=== PATIENT | male | born 1970 | race Caucasian/White ===

== ENCOUNTER 2018-07-03 10:37 | Outpatient (REF) | payer BC, SELFPAY ==
[2018-07-03 14:48] LABS: ALT 78 U/L (12-78); AST 48 U/L (15-37); Albumin 4.1 g/dL (3.4-5.0); Alkaline Phosphatase 89 U/L (46-116); Anion Gap 8.3 mmol/L (3-11); BUN 16 mg/dL (7-18); Bilirubin, Total 0.8 mg/dL (0.2-1.0); CO2 26.7 mmol/L (21.0-32.0); Calcium 9.5 mg/dL (8.5-10.1); Chloride 102 mmol/L (98-107); Cholesterol 198 mg/dL (50-200); Glucose 110 mg/dL (70-100); HDL Cholesterol 43 mg/dL (40-60); LDL CHOLESTEROL 114 mg/dL (<100); Potassium 4.3 mmol/L (3.5-5.1); Sodium 137 mmol/L (136-145); Total Protein 7.8 g/dL (6.4-8.2); Triglyceride 232 mg/dL (30-150)
== END 2018-07-03 10:57 ==
LOC: NCHCN 10:37
PROVIDERS: PCP Nurse Practitioner; Visit Provider Nurse Practitioner
DX: I10 Essential (primary) hypertension (principal); E78.5 Hyperlipidemia, unspecified
CPT/HCPCS: 80053; 80061; 83721

== ENCOUNTER 2019-07-24 12:18 | Outpatient (CLI) | payer BC, SELFPAY ==
--- NOTE | 2019-07-24 12:00 | DI.RAD_ITS ---
EXAM: XR SHOULDER RT COMPLETE 2+V INDICATION: pain. COMPARISON: No exams were available for comparison TECHNIQUE: 2D digital imaging was performed. FINDINGS: The glenohumeral joint space is well maintained. There is minimal spurring at the AC joint. No ten don or joint space calcifications are seen. IMPRESSION: Minimal degenerative changes.
--- NOTE | 2019-07-24 12:03 | DI.RAD_ITS ---
EXAM: XR ELBOW RT COMPLETE INDICATION: pain. COMPARISON: No exams were available for comparison TECHNIQUE: 2D digital imaging was performed. FINDINGS: There is an olecranon spur. No bony erosions or joint effusion is seen. Joint spaces are well main tained. IMPRESSION: Olecranon spur.
== END 2019-07-24 12:38 ==
PROVIDERS: PCP Nurse Practitioner; Visit Provider Student in an Organized Health Care Education/Training Program
DX: M25.511 Pain in right shoulder (principal); M19.011 Primary osteoarthritis, right shoulder; M25.521 Pain in right elbow; M77.8 Other enthesopathies, not elsewhere classified
CPT/HCPCS: 73030; 73080

== ENCOUNTER → 2019-10-08 13:54 | Outpatient (REF) | payer BC, SELFPAY ==
[2019-10-08 15:29] LABS: ALT 133 U/L (16-63); AST 60 U/L (15-37); Albumin 4.5 g/dL (3.4-5.0); Alkaline Phosphatase 102 U/L (46-116); Anion Gap 9.5 mmol/L (3-11); BUN 16 mg/dL (7-18); Bilirubin, Total 0.6 mg/dL (0.2-1.0); CO2 26.5 mmol/L (21.0-32.0); CREATININE 0.96 mg/dL (0.70-1.30); Calcium 9.2 mg/dL (8.5-10.1); Calculated LDL 100 mg/dL (<100); Chloride 99 mmol/L (98-107); Cholesterol 188 mg/dL (<200); Glucose 117 mg/dL (74-106); HDL Cholesterol 39 mg/dL (40-60); Potassium 4.2 mmol/L (3.5-5.1); Sodium 135 mmol/L (136-145); Total Protein 7.7 g/dL (6.4-8.2); Triglyceride 245 mg/dL (<150)
== END ==
LOC: NCHCN 13:54
PROVIDERS: PCP Nurse Practitioner; Visit Provider Nurse Practitioner
DX: I10 Essential (primary) hypertension (principal); E78.5 Hyperlipidemia, unspecified
CPT/HCPCS: 80053; 80061

== ENCOUNTER 2020-08-17 16:32 | Outpatient (REF) | payer BC, SELFPAY ==
[2020-08-17 15:26] LABS: HCT 42.5 % (40.0-50.0); MCH 30.7 pg (27.0-33.0); MCHC 35.3 % (32.0-36.0); MCV 87.1 fL (80-95); MPV 11.4 fL (8.0-11.0); Platelet Count 191 10^3/uL (130-400); RBC 4.88 10^6/uL (4.36-5.78); RDW 12.5 % (11.8-14.1); RDW-SD 39.8 fL; WBC 6.92 10^3/uL (4.4-10.8)
[2020-08-17 15:45] LABS: Hemoglobin A1C 5.2 % (<5.7)
[2020-08-17 15:47] LABS: ALT 108 U/L (16-63); AST 52 U/L (15-37); Albumin 4.6 g/dL (3.4-5.0); Alkaline Phosphatase 84 U/L (46-116); Anion Gap 8.6 mmol/L (3-11); BUN 20 mg/dL (7-18); Bilirubin, Total 0.9 mg/dL (0.2-1.0); CO2 26.4 mmol/L (21.0-32.0); CREATININE 0.9 mg/dL (0.70-1.30); Calcium 9.8 mg/dL (8.5-10.1); Calculated LDL 145 mg/dL (<100); Chloride 99 mmol/L (98-107); Cholesterol 227 mg/dL (<200); Glucose 112 mg/dL (74-106); HDL Cholesterol 49 mg/dL (40-60); Potassium 4.2 mmol/L (3.5-5.1); Sodium 134 mmol/L (136-145); Total Protein 8.1 g/dL (6.4-8.2); Triglyceride 167 mg/dL (<150)
== END 2020-08-17 16:33 | disposition home or self-care (01) ==
LOC: NCHCN 16:32
PROVIDERS: PCP Nurse Practitioner; Visit Provider Nurse Practitioner
DX: I10 Essential (primary) hypertension (principal); E78.5 Hyperlipidemia, unspecified; R73.9 Hyperglycemia, unspecified; R79.89 Other specified abnormal findings of blood chemistry
CPT/HCPCS: 80053; 80061; 85027; 83036

== ENCOUNTER 2020-12-10 13:10 | Emergency (ER) | payer BC, SELFPAY ==
[2020-12-10] VITALS (14 sets, daily range): BP systolic 119–142; BP diastolic 75–91; PULSE 85–98; RESP 15–23; TEMP 36.7; O2SAT 92–97
--- NOTE | 2020-12-10 13:15 | RT.EKG_ITS ---
APPROVED REPORT Exam: Resting ECG Reason for Exam: chest pain Patient Location: E HR:94 bpm ECG Measurements Heart Rate 94 AXIS OH 141 P 27 QRSd 87 QRS 26 QT 337 T 22 QTc 421 Conclusion Sinus rhythm...normal P axis, V-rate 60- 99 Atrial premature complex...SV complex w/ short R-R interval. PACs. No STEMI. I have reviewed and interpreted ECG and agree with software generated interpretation.
--- NOTE | 2020-12-10 13:45 | DI.RAD_ITS ---
Exam(s) XR CHEST 2V PA LATERAL EXAM: XR CHEST 2V PA LATERAL CLINICAL HISTORY: chest pain. TECHNIQUE: 2D digital imaging was performed. COMPARISON: CR CHEST 2 VIEWS PA,LAT from 09/17/2012 FINDINGS: Heart size is normal. The mediastinum is not widened. Lungs are clear. No infiltrates nor pleural effusions. IMPRESSION: No acute pulmonary findings.No significant change compared to September 2017 DATA REPOSITORY: RADIATION DOSE DELIVERED:
--- NOTE | 2020-12-10 13:45 | DI.CT_ITS ---
Exam(s) CT HEAD WO EXAM: CT HEAD WO CLINICAL HISTORY: headaches for the past month. TECHNIQUE: Imaging Protocol: Axial computed tomography images with coronal and sagittal reformatted images were created and reviewed COMPARISON: CT HEAD WITHOUT CONTRAST from 04/12/2016 FINDINGS: There are no skull fractures nor fluid in the visualized paranasal sinuses. There is no evidence of intracranial hemorrhage, mass effect, or shift of midline structures. There are no extra-axial fluid collections. The ventricles are not enlarged or shifted and there is no blo od within the ventricular system nor within the basal cisterns. IMPRESSION: No acute intracranial findings on this noninfused CT scan of the brain. No significant change compared to April 2016 RADIATION DOSE DELIVERED: 848.9mGy.cm Total DLP DATA REPOSITORY: All CT scans at this facility are submitted to the National Radiology Data Registry (NRDR) Dose Index Registry (DIR) with the [employer] (A[employer]). RADIATION OPTIMIZATION: All CT scans at this facility use at least one of these dose optimization te chniques: automated exposure control; mA and/or kV adjustment per patient size (includes targeted exa ms where dose is matched to clinical indication); or iterative reconstruction.
[2020-12-10 13:55] LABS: Abs Immature Grans 0.02 10^3/uL (0.0-0.06); Absolute Basophil Count 0.04 10^3/uL (0.0-0.2); Absolute Lymphocyte Count 1.52 10^3/uL (1.2-3.4); Absolute Monocyte Count 0.45 10^3/uL (0.1-0.8); Absolute Neutrophil Count 6.21 10^3/uL (1.2-6.7); Basophils % 0.5; Eosinophils % 1.2; HCT 42.4 % (40.0-50.0); Immature Grans % 0.2; Lymphocytes % 18.2; MCH 31.4 pg (27.0-33.0); MCHC 35.4 % (32.0-36.0); MCV 88.7 fL (80-95); MPV 10.3 fL (8.0-11.0); Monocytes % 5.4; Neutrophils % 74.5; Nucleated RBC 0 %; Platelet Count 207 10^3/uL (130-400); RBC 4.78 10^6/uL (4.36-5.78); RDW 12.4 % (11.8-14.1); RDW-SD 40.6 fL; WBC 8.34 10^3/uL (4.4-10.8)
--- NOTE | 2020-12-10 14:12 | ED.GENADUL_ITS ---
Discharge Plan Disposition Patient Disposition: HOME Condition: Stable Discharge Details Clinical Impression: Chest pain, Headache Primary Care Provider: Sue Queen ED Provider: Mary Kay Naylor Home Meds and New Rx's Prescriptions: No Action pravastatin [Pravachol] 40 MG tablet 40 mg PO DAILY RF: 0 amlodipine 5 MG tablet 5 mg PO DAILY RF: 0 lumbar back brace RF: 0 loratadine [Claritin Liqui-Gel] 10 MG capsule 10 mg PO DAILY PRNRF: 0 hydrochlorothiazide 25 mg tablet 12.5 mg PO DAILY RF: 0 lisinopril 40 MG tablet 40 mg PO QAM RF: 0 cyclobenzaprine 10 MG tablet 10 mg PO BID PRN PRNRF: 0 ibuprofen 600 MG tablet 600 mg PO Q6H PRN PRNQty: 30 RF: 1 acetaminophen [Tylenol] 325 MG tablet 650 mg PO Q6H PRN PRNQty: 30 RF: 0 omeprazole 40 mg Capsule,Delayed Release(Dr/Ec) 40 mg PO DAILY RF: 0 Discharge Instructions Instructions: Chest Pain (ED), General Headache (ED) Additional Instructions: Please follow-up with your doctor tomorrow, recommend outpatient stress test at the discretion of your primary care physician and reevaluation in 24 to 48 hours Do not engage in your exercise routine until you are cleared by your primary care physician 81 mg aspirin daily Please return earlier with recurrent chest pain, worsening headache, or with any new or worsening symptoms Discharge Data Discharge Date/Time-TO BE ENTERED AT DEPARTURE: 12/10/20 15:36 Medical Decision Making Patient is alert, oriented, pleasant, nonfocal neurological exam CT does not show evidence of acute pathology Chest x-ray reviewed without any evidence of infectious signs or symptoms or pneumothorax per radiology interpretation in my review Patient has a mild headache now that is not worsening and declines if any intervention regarding this I am concerned about patient's chest pain which she has had intermittently for the past several months he reports. He denies any known exertional component and actually states he feels great when he is exercising but when he stops exercising and rest, he developed some intermittent chest tightness. I think he will need close outpatient follow-up and we discussed admission for stress test versus outpatient follow-up, his heart score is a 3 and he has been absent since 2:00 yesterday, greater than 24 hours with a negative troponin and negative EKG however patient is aware he does have a strong family history and should not engage in any exercise or exertional activities until he is cleared by his primary care patient, who will take a baby aspirin daily and will call his doctor in the morning Did get him to call PCP, however they left for the day, he will call in the morning I see no evidence of active myocardial ischemia, EKG is reviewed by my attending physician, please see the documentation No right upper quadrant tenderness on exam or epigastric tenderness, mild elevation in LFTs, consistent with patient prior evaluation but compared, 38 in the ED H CPK slightly elevated, encouraged hydration patient will continue on all of his medications Differential Diagnosis Differential Diagnosis: Myocardial ischemia, migraine headache, GERD, intracranial tumor Medical Records Medical records reviewed: Yes I reviewed the patient's medical records. Lab Data Lab results reviewed: Yes I reviewed the patient's lab results. HPI General Mode of arrival: ambulatory . Date/Time Provider Initiated Documentation: 12/10/20 13:16 . Limitations to Documentation: no limitations . Information obtained by: patient . HPI Narrative: This 50-year-old gentleman with history of hypertension and hyperlipidemia presents with report of headache for the past 2 weeks and feeling lightheaded today which presents the pain at his visit. He also states he had an episode of chest pain yesterday. It was not exertional in nature. She denies any fever or chills. He states he has had similar symptoms in the past and was told that he has GERD for which he takes omeprazole. He denies known exacerbating or alleviating factors. He states that prior to the onset of pain he did walk out from the grocery store. He states the pain lasted approximately 3 minutes. He denies any associated shortness of breath or nausea. He denies any calf pain or swelling. He has not had pain since 2:00 yesterday. He states he did his normal workout and felt fine. He denies any additional complaints at this time. Related Data Home Medications Medication Instructions Recorded Confirmed lisinopril 40 mg PO QAM 09/17/12 12/10/20 cyclobenzaprine 10 mg PO BID PRN PRN 04/12/16 12/10/20 amlodipine 5 mg PO DAILY tab-cap 04/21/17 12/10/20 pravastatin [Pravachol] 40 mg PO DAILY tab-cap 04/21/17 12/10/20 loratadine [Claritin Liqui-Gel] 10 mg PO DAILY PRN 11/17/17 12/10/20 acetaminophen [Tylenol] 650 mg PO Q6H PRN PRN #30 tab 11/30/17 12/10/20 ibuprofen 600 mg PO Q6H PRN PRN #30 tab 11/30/17 12/10/20 hydrochlorothiazide 25 mg tablet 12.5 mg PO DAILY tab 06/17/19 12/10/20 omeprazole 40 mg PO DAILY 12/10/20 12/10/20 Previous Rx's Medication Instructions Recorded acetaminophen [Tylenol] 650 mg PO Q6H PRN PRN #30 tab 11/30/17 ibuprofen 600 mg PO Q6H PRN PRN #30 tab 11/30/17 Allergies Allergy/AdvReac Type Severity Reaction Status Date / Time fentanyl Allergy Unknown Unverified 12/10/20 13:25 atenolol AdvReac Mild Other (See Unverified 12/10/20 13:25 Comment) General Stated Complaint: GenMedical HERMINIO: 2 Review of Systems All systems reviewed & are unremarkable except as noted in HPI and below PFSH Medical History (Updated 12/10/20 @ 15:28 by ALLEN Chavarria) Chronic back pain Deviated nasal septum Diverticulosis Gastritis Headache Hernia Hyperlipidemia Hypertension Obstructive sleep apnea Surgical History (Updated 03/28/18 @ 14:33 by [employer] [place]) Appendectomy Arthroplasty of knee right- Dr. Castro back surgery x2 Cholecystectomy laparoscopic Colectomy sigmoid resection for diverticulitis Hernia Repair, Incisional (11/30/17) Family History (Updated 04/21/17 @ 10:55 by Idalmis Osullivan MD) Other Congestive heart failure Myocardial infarction Social History Smoking/Tobacco Use Status: Former Tobacco Use Smoking risk assessment performed?: Yes Alcohol Intake: current Alcohol Intake frequency: a few times a week Alcohol type: wine Drug use: Daily Substance use type: marijuana Current gender identity: male Do you feel safe at home: Yes Do you feel safe in your relationship?: Yes Exam Const General: cooperative, no acute distress and not ill appearing HENMT Head: normal to inspection Throat: uvula midline Eyes Pupils: PERRL EOM: EOM intact bilaterally Neck Other: No carotid bruit, no meningismus Resp Effort & Inspection: normal respiratory effort Auscultation: clear to auscultation bilaterally Cardio Rate: regular rate Rhythm: regular rhythm GI Other: Nontender Skin General skin exam: no rashes or lesions noted Neuro General: patient alert and patient oriented x3 Cranial Nerves: CN's II-XI intact bilaterally Speech: speech normal Gait: normal gait Motor: strength 5/5 throughout Sensory Exam: no sensory deficits noted Course Vital Signs Vital signs: Vital Signs Temperature 36.7 C 12/10/20 13:15 Pulse 94 H 12/10/20 13:15 Respiratory Rate 16 12/10/20 13:15 Blood Pressure 123/75 12/10/20 13:15 Pulse Oximetry 94 12/10/20 13:15 Temperature 36.7 C 12/10/20 13:15 Temperature Source Temporal Artery Scan 12/10/20 13:15 Pulse 87 12/10/20 13:46 Pulse 91 H 12/10/20 13:50 Respiratory Rate 18 12/10/20 13:50 Respiratory Effort Short of Breath 12/10/20 13:41 Respiratory Depth Normal 12/10/20 13:41 Respiratory Pattern Normal 12/10/20 13:41 Blood Pressure 124/82 12/10/20 13:46 Blood Pressure Mean 90 12/10/20 13:46 Blood Pressure Position Supine 12/10/20 13:15 Pulse Oximetry 96 12/10/20 13:50 Oxygen Delivery Method Room Air 12/10/20 13:15 Oxygen Flow Rate 0 12/10/20 13:15 Pain Level 3 12/10/20 13:15 Lab/Test Results Lab/Test Results: Laboratory Tests Range/Units 12/10/20 13:38 WBC (4.4-10.8) 10^3/uL 8.34 RBC (4.36-5.78) 10^6/uL 4.78 Hgb (13.5-17.5) g/dL 15.0 Hct (40.0-50.0) % 42.4 MCV (80-95) fL 88.7 MCH (27.0-33.0) pg 31.4 MCHC (32.0-36.0) % 35.4 RDW (11.8-14.1) % 12.4 Plt Count (130-400) 10^3/uL 207 MPV (8.0-11.0) fL 10.3 Immature Gran % 0.2 Neutrophils % 74.5 Lymphocytes % 18.2 Monocytes % 5.4 Eosinophils % 1.2 Basophils % 0.5 Nucleated RBC % % 0 Absolute Neutrophils (1.2-6.7) 10^3/uL 6.21 Absolute Lymphocytes (1.2-3.4) 10^3/uL 1.52 Absolute Monocytes (0.1-0.8) 10^3/uL 0.45 Absolute Eosinophils (0.0-0.7) 10^3/uL 0.10 Absolute Basophils (0.0-0.2) 10^3/uL 0.04
[2020-12-10 14:44] LABS: ALT 88 U/L (16-63); AST 38 U/L (15-37); Albumin 4.4 g/dL (3.4-5.0); Alkaline Phosphatase 68 U/L (46-116); Anion Gap 7.6 mmol/L (3-11); BUN 15 mg/dL (7-18); Bilirubin, Total 0.8 mg/dL (0.2-1.0); CO2 27.4 mmol/L (21.0-32.0); CREATININE 0.9 mg/dL (0.70-1.30); Calcium 9.5 mg/dL (8.5-10.1); Chloride 102 mmol/L (98-107); Creatine Kinase 328 U/L (39-308); Glucose 111 mg/dL (74-106); Lipase 82 U/L (73-393); Potassium 4.3 mmol/L (3.5-5.1); Sodium 137 mmol/L (136-145)
[2020-12-10 14:46] LABS: Troponin I < 0.05 ng/mL (<0.06)
== END 2020-12-10 15:36 | disposition home or self-care (01) ==
PROVIDERS: Emergency Provider Physician Assistant; PCP Nurse Practitioner
DX: R07.89 Other chest pain (principal); R51.9 Headache, unspecified; Z82.49 Family history of ischemic heart disease and other diseases of the circulatory system
CPT/HCPCS: 36415; 80053; 82550; 83690; 93005; 99285; 70450; 71046; 83735; 84484; 85025; 93010

== ENCOUNTER 2020-12-15 10:41 | Outpatient (REF) | payer BC, SELFPAY ==
[2020-12-15 21:51] LABS: Total Iron Binding Capacity 409 ug/dL (250-450)
[2020-12-15 22:50] LABS: Iron 85 ug/dL (65-175); Total Iron Binding Capacity 399 ug/dL (250-450); Transferrin Sat 21 % (20-55)
[2020-12-15 22:54] LABS: Calculated LDL 108 mg/dL (<100); Cholesterol 193 mg/dL (<200); GGT 69 U/L (15-85); HDL Cholesterol 41 mg/dL (40-60); TSH (W/Ref FT4) 1.81 uIU/mL (0.36-3.74); Triglyceride 223 mg/dL (<150); Vitamin B12 590 pg/mL (193-986)
[2020-12-17 10:06] LABS: Hepatitis B Surface Ag Negative (Negative)
[2020-12-17 10:29] LABS: Hepatitis C Ab w Rflx HCV PCR Negative (Negative)
[2020-12-17 10:57] LABS: Alpha 1 Antitrypsin,Serum 114 mg/dL (90-200)
[2020-12-17 11:13] LABS: HBs Antibody, Quant <3.1 mIU/mL (See Note); Hepatitis B Surface Ab Negative (See Note)
[2020-12-21 14:33] LABS: IgA 143 mg/dL (85-499); Interpretation (See Note); Tissue Transglutaminase IgA <1.2 U/mL (<4.0)
== END 2020-12-15 10:42 | disposition home or self-care (01) ==
LOC: NCHCN 10:41
PROVIDERS: PCP Nurse Practitioner; Visit Provider Nurse Practitioner
DX: E78.5 Hyperlipidemia, unspecified (principal); R79.89 Other specified abnormal findings of blood chemistry
CPT/HCPCS: 80061; 82784; 83516; 86706; 86803; 87340; 82103; 82607; 82977; 83540; 83550; 84443

== ENCOUNTER 2020-12-22 01:44 | Outpatient (CLI) | payer BC, SELFPAY ==
--- NOTE | 2020-12-22 08:45 | DI.NM_ITS ---
APPROVED REPORT Exam: Exercise Treadmill Patient Location: Out-Patient Room/Bed: Stress Nurse: Dana Lopez RN Ordering Provider:CASIEAdin SALOMON, Contact Number: [phone] BMI: 38.98 Baseline Rhythm: Sinus Rhythm Comment: T wave inversion lead III. Diffuse ST elevation leads, I, II, aVF Indications: Chest pain Medical History Medical History: Hypertension, hyperlipidemia, diverticulitis, gerd, SEAN, R shoulder injuries Cardiac Medications: Pravastatin, omeprazole, lisinopril, hydrochlorothiazide, amlodipine Allergies: Fentanyl, atenolol Cardiac Risk Factors: Hypertension, hyperlipidemia, familiy hx, smoker (former) Previous Cardiac Procedures: None Pretest Chest Pain Characteristics: None Exercise History: Physically active Physical Disabilities: None Lung Sounds: Clear to auscultation Heart Sounds: Regular Stress Test Details Test: Exercise stress testing was performed using a Helio protocol. Nuclear Acquisition: Rest Tc-99m/Stress Tc-99m 1 day Rest Isotope: Tc-99m Sestamibi. Dose: 12.5 Date: 12/22/2020 Injection Time: 0900 Stress Isotope: Tc-99m Sestamibi. Dose: 40.0 Date: 12/22/2020 Injection Time: 1036 HR Resting HR Supine: 79 bpm Max Heart Rate (APMHR): 171.188356 bpm Resting HR Standin bpm Target HR (85% APMHR): 145.014190 bpm Max HR Achieved: 160 bpm % of APMHR: 93.57 Recovery HR: 94 bpm HR response to stress: Normal HR response to stress BP Resting BP Supine: 138/86 mmHg Resting BP Standin/84 mmHg Max BP: 174/80 mmHg Recovery BP: 140/86 mmHg BP response to stress: Normal blood pressure response to stress. Comment: Pt held all BP medications this morning. ECG Resting ECG: Sinus Rhythm Comment: T wave inversion lead III. Diffuse ST elevation leads, I, II, aVF Stress ECG: Sinus Tachycardia ST Change: No significant ST segment changes noted Arrhythmia: Rare PVC Recovery ECG: Sinus Rhythm Recovery ST Change: No significant ST segment changes noted Recovery Arrhythmia: Occasional multifocal PVCs Clinical Reason for Termination: Fatigue, Dyspnea Stress Symptoms: General Fatigue, Dyspnea, Headache Exercise duration: 10 min31 sec Highest Stage Reached: Stage 4: 4.2 mph at 16% grade. Exercise capacity: 12.67 METs Rate Pressure Product: 42161 Stress ECG Conclusion 1. The patient exercised for 10 minutes and 31 seconds (13 METS). Patient no symptoms suggestive of ischemia. Exercise was stopped due to fatigue. 2. Patient's blood pressure and heart rate augmented appropriately. 3. There is no evidence of ischemia on the ECG portion exam baseline abnormalities make this nondiagn ostic. Stress Test Summary STAGE Time (mins) Speed (mph) Grade (%) HR BP SYMPTOMS METS Supine 79 138/86 Standing 78 132/84 SpO2 97% 1 3 1.7 10 108 150/82 SpO2 96% 4.6 2 6 2.5 12 124 162/86 SpO2 96% 7 3 9 3.4 14 141 174/80 SpO2 96%, severe CHAVES and SOB 10.2 1 min recovery 140 N/A SpO2 98% 3 min recovery 108 152/80 SpO2 98%, CHAVES imiproving 5/10, SOB resolving 6 min recovery 94 140/86 CHAVES 5/10, SOB resolved Pt terminated test due to dyspnea and severe CHAVES. States this CHAVES was similar to the one that brought h im to the ED on 12/10. MPI Conclusion The ejection fraction was 50% with stress. There were no wall motion abnormalities. There was no evidence of ischemia on the imaging portion of the exam. This represents a normal SPECT stress test. Radiologist Interpretation Radiologist agrees with Counter Waiter's Interpretation. Radiologist Interpretation by: Dannielle Ren MD Interpretation Date/Time: 12/22/2020 15:55:48
== END 2020-12-22 02:04 ==
LOC: DI 01:44
PROVIDERS: PCP Nurse Practitioner; Visit Provider Nurse Practitioner
DX: R07.9 Chest pain, unspecified (principal); I10 Essential (primary) hypertension; E78.5 Hyperlipidemia, unspecified; Z87.891 Personal history of nicotine dependence; Z82.49 Family history of ischemic heart disease and other diseases of the circulatory system
CPT/HCPCS: 78452; 93017

== ENCOUNTER 2021-07-07 01:15 | Outpatient (CLI) | payer BC, SELFPAY ==
[2021-07-07 12:07] LABS: Source Nasal/Nares
[2021-07-07 15:08] LABS: COVID-19 PCR Negative (Negative)
== END 2021-07-07 01:16 | disposition home or self-care (01) ==
LOC: LBO 01:15
PROVIDERS: PCP Physician Assistant; Visit Provider Surgery
DX: Z20.822 Contact with and (suspected) exposure to COVID-19 (principal); Z01.818 Encounter for other preprocedural examination
CPT/HCPCS: 87635

== ENCOUNTER 2021-07-09 06:20 | Day surgery (SDC) | payer BC, SELFPAY ==
--- NOTE | 2021-07-08 15:47 | PDOC.DSDIS_ITS ---
Discharge Plan Disposition Patient Disposition: HOME Condition: Good Discharge Details Reason For Visit: colon cancer screening Attending Provider: Sondra Pendleton Primary Care Provider: Baron Trinidad Home Meds and New Rx's Prescriptions: Continued bisacodyl [Dulcolax (bisacodyl)] 5 mg tablet,delayed release (DR/EC) 5 mg PO ONCE Qty: 4 RF: 0 pravastatin [Pravachol] 40 MG tablet 40 mg PO DAILY RF: 0 amlodipine 5 MG tablet 5 mg PO DAILY RF: 0 lumbar back brace RF: 0 loratadine [Claritin Liqui-Gel] 10 MG capsule 10 mg PO DAILY PRNRF: 0 omeprazole 20 mg capsule,delayed release(DR/EC) 20 mg PO BID RF: 0 hydrochlorothiazide 25 mg tablet 25 mg PO DAILY RF: 0 lisinopril 40 MG tablet 40 mg PO QAM RF: 0 cyclobenzaprine 10 MG tablet 10 mg PO BID PRN PRNRF: 0 ibuprofen 600 MG tablet 600 mg PO Q6H PRN PRNQty: 30 RF: 1 acetaminophen [Tylenol] 325 MG tablet 650 mg PO Q6H PRN PRNQty: 30 RF: 0 multivitamin Tablet 1 tab PO DAILY RF: 0 Discontinued polyethylene glycol 3350 17 gram/dose powder 17 g PO ONCE Qty: 238 RF: 0 cholecalciferol (vitamin D3) [Vitamin D3] 125 mcg (5,000 unit) Tablet 5,000 unit PO DAILY RF: 0 Discharge Instructions Additional Instructions: DSU Colonoscopy Post- Op Instructions Instructions for Everyone who is given Anesthesia: For your safety, please do the following for the next twenty-four (24) hours: *Do Not operate a motor vehicle (car, truck, motorcycle, etc.) *Do Not drink alcoholic beverages or use any recreational drugs for the first 24 hours or while taking pain medications. The medications in your body may have a reaction that can be dangerous. *Do Not make any important decisions or sign any important papers. Findings:few residual diverticula, otherwise normal keep following high fiber diet! Follow up: repeat in 10 yrs time 1. No lifting over 20 pounds or strenuous activity for the first 24 hours after your procedure. After 24 hours there are no restrictions on your activity but you may feel fatigued for a few days. 2. After you arrive home you may have a light meal and return to your normal diet as you can tolerate it without feeling sick to your stomach. 3. You may have a bloated, gaseous feeling in your belly (abdomen) after a colonoscopy. Passing gas and belching will help. Walking or lying down on your left side with your knees flexed may relieve the discomfort. Call the office at [phone] (Office) or [phone] (Hospital) right away if you notice any of the following: a.Vomiting of blood or ?coffee ground stools?. b.Rectal bleeding 1Tbsp, blood clots or continuous bleeding. c.Severe belly (abdominal) pain. d.A hard distended belly (abdomen) and an inability to pass gas. 4. Please don?t expect to have a normal BM (bowel movement) for 2-3 days after your procedure. 5. If there are questions regarding the findings of your procedure, please contact your doctor 6. If you are unable to contact your doctor with a problem, contact the hospital at [phone]. 7. Continue all your regular medications unless directed otherwise. I understand the above instructions and have no questions. Signature of Patient or Adult Escort Name of Responsible Adult Escort Signature of Nurse Date/Time Activity:: see above Diet:: see above Discharge Orders Discharge Orders: Discharge Order (Routine); Ordered 07/08/21 Ordered By: Sondra Pendleton DS: Diagnosis Discharge Diagnosis (1) Screening for colon cancer: Status: Acute (2) Colectomy: (3) Hernia Repair, Incisional: (4) S/P laparoscopic hernia repair:
--- NOTE | 2021-07-08 15:47 | W.COLOREPORT ---
Colonoscopy Report Date of procedure: 07/09/21 Pre-op diagnosis general: CRC screening Surgeon: Sondra Pendleton Anesthesia Type: General LMA/ETT Prep: Miralax/Dulcolax Procedure Description: After informed consent was obtained the patient was taken to the procedure room and placed in a left decubitous position. Monitors were applied and a time out was done. The patients name, date of , procedure, allergies to medications and metal in their body was reviewed. The patient was then sedated. Once sedated and comfortable a rectal exam was done. External exam shows a few external hemorrhoidal tags. Internal exam revealed a normal sphincter tone and no palpable masses. The scope was then introduced and retrofelexed. No internal hemorrhoids were identified. The scope was then advanced to the cecum w/out difficulty. The TI and appendiceal orifice were identified. The prep was BBPS- 2 throughout the entire colon. the colon was lavaged w/ a liter of saline. The scope was then slowly retracted over 7 minutes back into the rectum. There were no polyps or AVM's. He has a few large mouthed diverticula still present.. There are no signs of active bleeding or infection. He has had a previous sigmoid resection- the anastomosis is widely patent. There were no polyps or AVM's. The scope was removed and the patient was woken up and taken back to Same day surgery in stable condition. The patient tolerated the procedure well and there were no immediate complications. Follow up: The patient should follow up in 10 years unless they develop changes in bowel habits or other new gastrointestinal complaints.
--- NOTE | 2021-07-09 06:30 | W.ANESPRE ---
General Info Date of Service Date Performed: 07/09/21 Height: 5 ft 9 in Weight: 122.186 kg Body Mass Index (BMI): 39.7 Surgical Procedure: Operation Date: 07/09/21 07:35 Proposed Procedures Side Surgeon jeffery Pendleton, DO Meds Allergies and Home Medications Allergies Allergy/AdvReac Type Severity Reaction Status Date / Time fentanyl Allergy Severe diaphoresis Unverified 07/09/21 06:39 atenolol AdvReac Intermediate erectile Unverified 07/09/21 06:39 dysfunction Home Medication Medication Instructions Recorded lisinopril 40 mg PO QAM 09/17/12 cyclobenzaprine 10 mg PO BID PRN PRN 04/12/16 amlodipine 5 mg PO DAILY tab-cap 04/21/17 pravastatin [Pravachol] 40 mg PO DAILY tab-cap 04/21/17 loratadine [Claritin Liqui-Gel] 10 mg PO DAILY PRN 11/17/17 acetaminophen [Tylenol] 650 mg PO Q6H PRN PRN #30 tab 11/30/17 ibuprofen 600 mg PO Q6H PRN PRN #30 tab 11/30/17 omeprazole 20 mg capsule,delayed 20 mg PO BID 01/14/21 release bisacodyl 5 mg tablet,delayed 5 mg PO ONCE #4 tab 06/17/21 release hydrochlorothiazide 25 mg tablet 25 mg PO DAILY tab 06/17/21 polyethylene glycol 3350 17 17 g PO ONCE #238 g 06/17/21 gram/dose oral powder cholecalciferol (vitamin D3) 5,000 unit PO DAILY 07/08/21 [Vitamin D3] multivitamin [Men's Multi-Vitamin] 1 tab PO DAILY 07/08/21 Current Visit Medications: Current Medications Generic Name Dose Route Start Last Admin Trade Name Freq PRN Reason Stop Dose Admin Hyoscyamine Sulfate 0.125 mg 07/08/21 15:42 Hyoscyamine 0.125 Mg Sl/Oral/Chew SL DIRECTED PRN Ringer's Solution 1,000 mls @ 80 mls/hr 07/09/21 06:00 IV 07/12/21 23:59 INFUSION CARMINA IV Miscellaneous Supplies 1 each 07/09/21 06:00 Iv Access IV 07/12/21 23:59 DIRECTED [facility] Ondansetron HCl 4 mg 07/08/21 15:42 Ondansetron 4 Mg/2 Ml Vial IVP Q4H PRN PRN Nausea / Vomiting Sodium Chloride 0 ml 07/09/21 06:00 Normal Saline Flush 10 Ml Syr IV 07/12/21 23:59 PRN PRN Sodium Chloride 0 ml 07/09/21 06:00 Normal Saline 10 Ml Vial IJ 07/12/21 23:59 DIRECTED PRN Sterile Water 0 ml 07/09/21 06:00 Water,Injection,Sterile 10 Ml Vial IJ 07/12/21 23:59 DIRECTED PRN PFSH Active Problems Active Problems: Problem Status Onset Code Screening for colon cancer Z12.11 Chest pain R07.9 Headache R51.9 Elevated blood pressure reading without diagnosis of hypertension R03.0 Medical History Medical History Bursitis of right shoulder Chronic back pain Deviated nasal septum Diverticulosis Elevated LFTs Gastritis Headache Hematoma Hernia Hyperlipidemia Hypertension Impingement syndrome of right shoulder Obstructive sleep apnea Pain in right shoulder Right lateral epicondylitis Tendonitis of long head of biceps brachii of right shoulder Surgical History Surgical History Appendectomy Arthroplasty of knee right- Dr. Castro 07/09/21: NOT TKA, rather ACL removal (right side), per pt. -BR back surgery x2 Cholecystectomy laparoscopic Colectomy sigmoid resection for diverticulitis Hernia Repair, Incisional (11/30/17) S/P laparoscopic hernia repair Tobacco Smoking/Tobacco Use Status: Former Tobacco Use Alcohol Alcohol Intake: current Alcohol intake frequency: a few times a week Alcohol type: wine Substance Use Substance use: Daily Substance use type: marijuana Details: Edibles Vital Signs and Lab Results Vital Signs Most Recent Vital Signs in EMR: Temp Pulse Resp BP Pulse Ox 36.6 C 91 H 16 135/87 98 07/09/21 06:42 07/09/21 06:42 07/09/21 06:42 07/09/21 06:42 07/09/21 06:42 Lab Results Blood Type / Crossmatch: No Data to Display Complete Blood Count: No Data to Display Complete Metabolic Panel: No Data to Display Liver Function Panel: No Data to Display Coagulation Panel: No Data to Display Cardiac Panel: No Data to Display Arterial Blood Gas: No Data to Display Venous Blood Gas: No Data to Display Pancreas Panel: No Data to Display Thyroid Panel: No Data to Display Infectious Disease: Coronavirus (COVID-19)(PCR) Negative (Negative) 07/07/21 08:35 07/07/21 Coronavirus 2019 Source Nasal/Nares 07/07/21 08:35 07/07/21 Blood Cultures: No Data to Display Toxicology Panel: No Data to Display Imaging and Studies Imaging and Studies Study information below may be from another EMR and interpreted by another provider. Please see original notes in EMR for more complete details. EKG Summary: 2019: sinus rhythm. Stress Test Summary: 12/2020: 13 mets, LVEF 50%, no evidence of ischemia. Anesthesia Assessment and Plan Anesthesia History Personal History: No History of Anesthesia Complications Family History: No Family History of Anesthesia Complications Exercise Tolerance Exercise Tolerance: Metabolic Equivalents>4 Cardiac & Pulmonary Exam Cardiac Exam: Normal S1/S2 Heart Sounds Pulmonary Exam: Clear Bilateral Breath Sounds Implantable Cardiac Device Does patient have a Pacemaker or an ICD?: No Airway Exam Known Difficult Airway: No Mallampati Class: 1 Mouth Opening: Normal (> 3cm) Thyromental Distance: Greater than 3 cm Neck Range of Motion: Full ROM Neck Circumference: Thick Teeth Condition: Normal Dentition ASA Classification ASA Score: ASA 2 Emergency Case?: No NPO Status NPO Status: NPO Clears >2 hours, Solids >8 hours Anesthesia Plan Resuscitation Status: Full Code Anesthesia Technique: General Anesthesia Airway Planned: Natural Airway Monitors Used: Standard Monitors Preoperative Comments:: 51 yo male for screening colonoscopy, history of sigmoid colectomy due to divertic. Sig PMHx: HTN (lisinopril, amlodipine, HCTZ), GERD (omeprozole), SEAN, former smoker, daily etoh. Previous Anes: ez mask, mac 4 grade 3.
[2021-07-09 06:42] VITALS: BP 135/87; PULSE 91; RESP 16; TEMP 36.6; O2SAT 98
[2021-07-09 07:00] VITALS: BMI 39.7
[2021-07-09] MEDS: Lactated Ringers 1,000 ML 80 ML IV (07:00)
[2021-07-09 07:57] VITALS: BP 129/47; PULSE 82; RESP 18; TEMP 36.7; O2SAT 96
--- NOTE | 2021-07-09 08:11 | W.ANESPOSTOP ---
Postoperative Evaluation Date, Time and Location Date Performed: 07/09/21 Time Performed: 08:11 Patient Location: Day Surgery Unit Vital Signs Most Recent Imported Vital Signs: Most Recent Vital Signs Temp Pulse Resp BP Pulse Ox 36.7 C 82 18 129/47 L 96 07/09/21 07:57 07/09/21 07:57 07/09/21 07:57 07/09/21 07:57 07/09/21 07:57 Pain Score Most Recent Pain Score: Most Recent Pain Score Pain Level 0 07/09/21 07:57 Assessment Mental Status: Awake (Alert & Oriented to Patient Baseline) Airway and Respiratory Function: Patent airway with normal (patient baseline) respiratory exam Cardiovascular Function: Hemodynamically Stable Hydration Status: Adequately Hydrated Nausea & Vomiting: No Nausea or Vomiting Pain: Pt. Denies Any Pain Peripheral Nerve Block: Patient did not receive a nerve block
[2021-07-09 08:23] VITALS: BP 118/78; PULSE 78; RESP 16; TEMP 36.5; O2SAT 96
== END 2021-07-09 08:43 | disposition home or self-care (01) ==
LOC: SUR 06:20
PROVIDERS: PCP Physician Assistant; Visit Provider Surgery
PROC: 0DJD8ZZ Inspection of Lower Intestinal Tract, Via Natural or Artificial Opening Endoscopic (ICD-10-PCS; CPT 45378; principal; 2021-07-09 07:30)
DX: Z12.11 Encounter for screening for malignant neoplasm of colon (principal); Z87.19 Personal history of other diseases of the digestive system; E78.5 Hyperlipidemia, unspecified; I10 Essential (primary) hypertension; G47.33 Obstructive sleep apnea (adult) (pediatric); Z98.0 Intestinal bypass and anastomosis status
CPT/HCPCS: 45378; J2001; J2704

== ENCOUNTER 2022-03-02 09:14 | Outpatient (REF) | payer OTHER, SELFPAY ==
[2022-03-02 16:11] LABS: Abs Immature Grans 0.04 10^3/uL (0.0-0.06); Absolute Basophil Count 0.07 10^3/uL (0.0-0.2); Absolute Eosinophil Count 0.14 10^3/uL (0.0-0.7); Absolute Lymphocyte Count 0.85 10^3/uL (1.2-3.4); Absolute Monocyte Count 0.61 10^3/uL (0.1-0.8); Absolute Neutrophil Count 7.12 10^3/uL (1.2-6.7); Basophils % 0.8; Eosinophils % 1.6; HGB 14.3 g/dL (13.5-17.5); Immature Grans % 0.5; Lymphocytes % 9.6; MCH 30.6 pg (27.0-33.0); MCV 90 fL (80-95); MPV 11.3 fL (8.0-11.0); Monocytes % 6.9; Neutrophils % 80.6; Platelet Count 207 10^3/uL (130-400); RBC 4.67 10^6/uL (4.36-5.78); RDW 12.5 % (11.8-14.1); RDW-SD 40.7 fL; WBC 8.83 10^3/uL (4.4-10.8)
[2022-03-02 16:47] LABS: ALT 42 U/L (16-63); AST 30 U/L (15-37); Albumin 4.5 g/dL (3.4-5.0); Alkaline Phosphatase 108 U/L (46-116); Anion Gap 10.6 mmol/L (3-11); BUN 24 mg/dL (7-18); Bilirubin, Total 0.5 mg/dL (0.2-1.0); CO2 25.4 mmol/L (21.0-32.0); Calcium 9.7 mg/dL (8.5-10.1); Calculated LDL 160 mg/dL (<100); Chloride 101 mmol/L (98-107); Cholesterol 241 mg/dL (<200); Estimated GFR 91.69 (mL/min/1.73m2); Glucose 109 mg/dL (74-106); HDL Cholesterol 48 mg/dL (40-60); Potassium 4.2 mmol/L (3.5-5.1); Sodium 137 mmol/L (136-145); Total Protein 8.1 g/dL (6.4-8.2); Triglyceride 166 mg/dL (<150)
[2022-03-04 09:59] LABS: HIV-1/2 Ag & Ab Screen Negative (Negative)
== END 2022-03-02 09:15 | disposition home or self-care (01) ==
LOC: NCHCN 09:14
PROVIDERS: PCP Physician Assistant; Visit Provider Nurse Practitioner Family
DX: I10 Essential (primary) hypertension (principal); E78.5 Hyperlipidemia, unspecified; Z00.00 Encounter for general adult medical examination without abnormal findings; Z11.4 Encounter for screening for human immunodeficiency virus [HIV]
CPT/HCPCS: 80053; 80061; 87389; 85025

== ENCOUNTER 2023-02-07 11:28 | Emergency (ER) | payer OTHER, SELFPAY ==
[2023-02-07 11:30] VITALS: BP 131/94; PULSE 90; RESP 20; TEMP 37; O2SAT 99
--- NOTE | 2023-02-07 11:45 | RT.EKG_ITS ---
APPROVED REPORT Exam: Resting ECG Reason for Exam: chest pain Patient Location: E HR:80 bpm ECG Measurements Heart Rate 80 AXIS MD 157 P 22 QRSd 83 QRS 16 QT 342 T 17 QTc 396 Conclusion Sinus rhythm...normal P axis, V-rate 60- 99 Ventricular premature complex...V complex w/ short R-R interval
--- NOTE | 2023-02-07 11:45 | DI.CT_ITS ---
Exam(s) CT CHEST WO EXAM: CT CHEST WO CLINICAL HISTORY: right chest pain, aspirated apple?. TECHNIQUE: Imaging protocol: Axial computed tomography images were obtained and coronal and sagittal reformatted images were created and reviewed. COMPARISON: No exams were available for comparison FINDINGS: Tracheobronchial tree: Patent where visualized. No foreign bodies are seen in the airway. No fluid i s seen in the airways. Pulmonary parenchyma: No consolidation or dominant measurable mass. No architectural distortion. Ther e is a 3 mm nodule associated with the right major fissure. There is a 4 mm nodule associated with t he left major fissure. Mediastinum and Nai: No dominant adenopathy or fluid collection. The esophagus is unremarkable. Thyroid gland: Unremarkable. Pleura: No effusion or pneumothorax. Heart: The heart is not dilated. Moderate coronary artery calcification is present. No pericardial e ffusion. Aorta: Thoracic aorta non-dilated. Mild atherosclerosis. Upper abdomen: Status post cholecystectomy. Lymph nodes: Within normal limits. Soft tissues: Unremarkable. Bones:Within normal limits for the patient's age. IMPRESSION: 1. No pulmonary infiltrates. No foreign bodies or fluid is seen in the airways. 2. Two perifissural nodules. Follow-up CT scan is optional in 12 months (Cipriano et al, 2017). 3. Findings were discussed with the emergency department at 2:30 p.m. on 02/07/2023. RADIATION DOSE DELIVERED: 698.35mGy.cm Total DLP 698.35mGy.cm Total DLP DATA REPOSITORY: All CT scans at this facility are submitted to the National Radiology Data Registry (NRDR) Dose Index Registry (DIR) with the [employer] (A[employer]). RADIATION OPTIMIZATION: All CT scans at this facility use at least one of these dose optimization te chniques: automated exposure control; mA and/or kV adjustment per patient size (includes targeted exa ms where dose is matched to clinical indication); or iterative reconstruction.
--- NOTE | 2023-02-07 12:11 | ED.GENADUL_ITS ---
Discharge Plan Disposition Patient Disposition: Home Discharge Details Clinical Impression: Chest pain Primary Care Provider: Baron Trinidad ED Provider: Mary Kay Naylor Home Meds and New Rx's Prescriptions: Continued bisacodyl [Dulcolax (bisacodyl)] 5 mg tablet,delayed release (DR/EC) 5 mg PO ONCE Qty: 4 0RF Rx Instructions: Take according to provider's instructions for colonoscopy prep. lumbar back brace 0RF loratadine [Claritin Liqui-Gel] 10 MG capsule 10 mg PO DAILY PRN omeprazole 20 mg capsule,delayed release(DR/EC) 20 mg PO BID hydrochlorothiazide 25 mg tablet 25 mg PO DAILY lisinopril 40 MG tablet 40 mg PO QAM cyclobenzaprine 10 MG tablet 10 mg PO BID PRN PRN ibuprofen 600 MG tablet 600 mg PO Q6H PRN PRNQty: 30 1RF acetaminophen [Tylenol] 325 MG tablet 650 mg PO Q6H PRN PRNQty: 30 0RF multivitamin Tablet 1 tab PO DAILY Discharge Instructions Instructions: Chest Pain (ED) Additional Instructions: Please follow-up with your primary care doctor as you have several nodules on your chest CT There is no evidence of retained foreign body in your lungs Please continue with your daily activities and follow-up with your primary care physician should you have persistent symptoms Return earlier should you have new or worsening complaints Your diagnostic labs do not show evidence of acute abnormality Referrals: Baron Trinidad [Primary Care Provider] - Discharge Data Discharge Date/Time-TO BE ENTERED AT DEPARTURE: 02/07/23 14:49 Medical Decision Making 52-year-old male presents with report of sensation of aspirating piece of apple, right-sided mild chest discomfort Case was discussed with Dr. Velazquez, radiologist regarding appropriate imaging study, CT noncontrast was ordered to evaluate for possible aspiration, while patient is 52, all of his per criteria or other otherwise negative and I have very low suspicion for PE in this patient, EKG and troponin were fine Patient is feeling symptomatically improved at this time He is aware that there is no evidence of a aspiration on his CT scan Return precautions reviewed and patient expressed understanding Discharged home in stable condition with stable vitals HPI General Date/Time Provider Initiated Documentation: 02/07/23 11:52 . HPI Narrative: This 52-year-old male presents with report of sensation of aspirating an apple on Monday. He states that he has had pain with breathing since that time. He denies any sensation in his throat. He denies any fever or chills. He states his symptoms are exacerbated with activity. Denies Additional complaints at this time. Related Data Home Medications Medication Instructions Recorded Confirmed lisinopril 40 mg tablet 40 mg PO QAM 09/17/12 07/09/21 cyclobenzaprine 10 mg tablet 10 mg PO BID PRN PRN 04/12/16 07/09/21 loratadine 10 mg capsule (Claritin 10 mg PO DAILY PRN 11/17/17 07/09/21 Liqui-Gel) acetaminophen 325 mg tablet 650 mg PO Q6H PRN PRN #30 tabs 11/30/17 07/09/21 (Tylenol) ibuprofen 600 mg tablet 600 mg PO Q6H PRN PRN #30 tabs 11/30/17 07/09/21 omeprazole 20 mg capsule,delayed 20 mg PO BID 01/14/21 07/09/21 release bisacodyl 5 mg tablet,delayed 5 mg PO ONCE #4 tabs 06/17/21 07/09/21 release (Dulcolax (bisacodyl)) hydrochlorothiazide 25 mg tablet 25 mg PO DAILY 06/17/21 07/09/21 multivitamin 1 tab PO DAILY 07/08/21 07/09/21 Previous Rx's Medication Instructions Recorded acetaminophen 325 mg tablet 650 mg PO Q6H PRN PRN #30 tabs 11/30/17 (Tylenol) ibuprofen 600 mg tablet 600 mg PO Q6H PRN PRN #30 tabs 11/30/17 bisacodyl 5 mg tablet,delayed 5 mg PO ONCE #4 tabs 06/17/21 release (Dulcolax (bisacodyl)) Allergies Allergy/AdvReac Type Severity Reaction Status Date / Time fentanyl Allergy Severe diaphoresis Unverified 02/07/23 11:36 atenolol AdvReac Intermediate erectile Unverified 02/07/23 11:36 dysfunction General Stated Complaint: ForeignBody HERMINIO: 4 PFSH All Active Problems (Updated 02/07/23 @ 14:34 by ALLEN Chavarria) Normal colonoscopy (Acute) Elevated blood pressure reading without diagnosis of hypertension (Acute) Chest pain (Acute) Headache (Acute) Screening for colon cancer (Acute) Medical History (Updated 02/07/23 @ 14:34 by ALLEN Chavarria) Bursitis of right shoulder Chronic back pain Deviated nasal septum Diverticulosis Elevated LFTs Gastritis Headache Hematoma Hernia Hyperlipidemia Hypertension Impingement syndrome of right shoulder Obstructive sleep apnea Pain in right shoulder Right lateral epicondylitis Tendonitis of long head of biceps brachii of right shoulder Surgical History (Updated 07/15/21 @ 15:39 by Karoline Vigil RN) Appendectomy Arthroplasty of knee right- Dr. Castro 07/09/21: NOT TKA, rather ACL removal (right side), per pt. -BR back surgery x2 Cholecystectomy laparoscopic Colectomy sigmoid resection for diverticulitis Hernia Repair, Incisional (11/30/17) History of colonoscopy (~07/09/21) S/P laparoscopic hernia repair Family History (Updated 04/21/17 @ 10:55 by Idalmis Osullivan MD) Other Congestive heart failure Myocardial infarction Social History (Updated 06/17/21 @ 12:11 by ALLEN Alvarado) Smoking/Tobacco Use Status: Former Tobacco Use Quit Date: 06/12/18 Smoking risk assessment performed?: Yes Alcohol Intake: current Alcohol Intake frequency: a few times a week Alcohol type: wine Drug use: Daily Substance use type: marijuana Details: Edibles Current gender identity: male Do you feel safe at home: Yes Do you feel safe in your relationship?: Yes Course Vital Signs Vital signs: Vital Signs Temperature 37.0 C 02/07/23 11:30 Pulse 90 02/07/23 11:30 Respiratory Rate 20 02/07/23 11:30 Blood Pressure 131/94 H 02/07/23 11:30 Pulse Oximetry 99 02/07/23 11:30 Temperature 37.0 C 02/07/23 11:30 Temperature Source Oral 02/07/23 11:30 Pulse 90 02/07/23 11:30 Respiratory Rate 20 02/07/23 11:30 Respiratory Effort Normal 02/07/23 11:37 Blood Pressure 131/94 H 02/07/23 11:30 Blood Pressure Position Sitting 02/07/23 11:30 Pulse Oximetry 99 02/07/23 11:30 Oxygen Delivery Method Room Air 02/07/23 11:30 Oxygen Flow Rate 0 02/07/23 11:30
[2023-02-07 12:26] LABS: Abs Immature Grans 0.03 10^3/uL (0.0-0.06); Absolute Basophil Count 0.08 10^3/uL (0.0-0.2); Absolute Eosinophil Count 0.07 10^3/uL (0.0-0.7); Absolute Lymphocyte Count 1.59 10^3/uL (1.2-3.4); Absolute Monocyte Count 0.58 10^3/uL (0.1-0.8); Absolute Neutrophil Count 6.77 10^3/uL (1.2-6.7); Basophils % 0.9; Eosinophils % 0.8; HCT 46.1 % (40.0-50.0); HGB 15.9 g/dL (13.5-17.5); Immature Grans % 0.3; Lymphocytes % 17.4; MCH 30.5 pg (27.0-33.0); MCHC 34.5 % (32.0-36.0); MCV 88 fL (80-95); MPV 10.4 fL (8.0-11.0); Monocytes % 6.4; Neutrophils % 74.2; Platelet Count 218 10^3/uL (130-400); RBC 5.22 10^6/uL (4.36-5.78); RDW 12.6 % (11.8-14.1); RDW-SD 40.9 fL; WBC 9.12 10^3/uL (4.4-10.8)
[2023-02-07 13:31] LABS: ALT 56 U/L (16-63); AST 46 U/L (15-37); Albumin 4.9 g/dL (3.4-5.0); Alkaline Phosphatase 88 U/L (46-116); Anion Gap 10.8 mmol/L (3-11); BUN 20 mg/dL (7-18); Bilirubin, Total 0.8 mg/dL (0.2-1.0); CO2 27.2 mmol/L (21.0-32.0); Calcium 9.9 mg/dL (8.5-10.1); Chloride 99 mmol/L (98-107); Estimated GFR 91.12 (mL/min/1.73m2); Glucose 106 mg/dL (74-106); Potassium 3.8 mmol/L (3.5-5.1); Sodium 137 mmol/L (136-145); Total Protein 8.9 g/dL (6.4-8.2); Troponin I < 50 ng/L (<or=60)
[2023-02-07 14:47] VITALS: BP 116/74; PULSE 72; RESP 12; O2SAT 98
== END 2023-02-07 14:49 | disposition home or self-care (01) ==
PROVIDERS: Emergency Provider Physician Assistant; PCP Physician Assistant
DX: R07.9 Chest pain, unspecified (principal); R91.8 Other nonspecific abnormal finding of lung field; Z87.891 Personal history of nicotine dependence
CPT/HCPCS: 71250; 80053; 93005; 99285; 84484; 85025; 93010; 99283

== ENCOUNTER 2023-10-03 15:45 | Outpatient (REF) | payer OTHER, SELFPAY ==
[2023-10-03 18:44] LABS: HCT 43.6 % (40.0-50.0); HGB 15.3 g/dL (13.5-17.5); MCH 30.6 pg (27.0-33.0); MCHC 35.1 % (32.0-36.0); MCV 87 fL (80-95); MPV 11.6 fL (8.0-11.0); Platelet Count 207 10^3/uL (130-400); RDW 12.7 % (11.8-14.1); WBC 7.29 10^3/uL (4.4-10.8)
[2023-10-03 19:07] LABS: ALT 51 U/L (16-63); AST 39 U/L (15-37); Albumin 4.7 g/dL (3.4-5.0); Alkaline Phosphatase 80 U/L (46-116); Anion Gap 10.8 mmol/L (3-11); BUN 25 mg/dL (7-18); Bilirubin, Total 0.7 mg/dL (0.2-1.0); CO2 26.2 mmol/L (21.0-32.0); CREATININE 0.9 mg/dL (0.70-1.30); Calcium 9.7 mg/dL (8.5-10.1); Chloride 102 mmol/L (98-107); Estimated GFR 102.76 (mL/min/1.73m2); Glucose 100 mg/dL (74-106); Potassium 4.2 mmol/L (3.5-5.1); Sodium 139 mmol/L (136-145); Total Protein 8.1 g/dL (6.4-8.2)
[2023-10-04 09:23] LABS: Ferritin 182 ng/mL (26-388)
[2023-10-05 13:19] LABS: Cholesterol 200 mg/dL (<200); HDL Cholesterol 52 mg/dL (>or=40); Triglyceride 114 mg/dL (<or=150)
[2023-10-05 13:20] LABS: Calculated LDL 125 mg/dL (<160)
[2023-10-05 18:34] LABS: Iron 69 ug/dL (65-175); Total Iron Binding Capacity 469 ug/dL (250-450); Transferrin Sat 15 % (20-55)
== END 2023-10-03 15:46 | disposition home or self-care (01) ==
LOC: NCHCN 15:45
PROVIDERS: PCP Physician Assistant; Visit Provider Nurse Practitioner Family
DX: E78.5 Hyperlipidemia, unspecified (principal); I10 Essential (primary) hypertension; Z68.35 Body mass index [BMI] 35.0-35.9, adult; G47.33 Obstructive sleep apnea (adult) (pediatric); R25.2 Cramp and spasm
CPT/HCPCS: 80053; 80061; 85027; 82728; 83540; 83550; 84443

== ENCOUNTER 2024-12-05 01:08 | Outpatient (CLI) | payer OTHER, SELFPAY ==
[2024-12-05 09:22] LABS: ALT 58 U/L (16-63); AST 35 U/L (15-37); Albumin 4.5 g/dL (3.4-5.0); Alkaline Phosphatase 85 U/L (46-116); Anion Gap 7.2 mmol/L (3-11); BUN 33 mg/dL (7-18); CO2 28.8 mmol/L (21.0-32.0); CREATININE 0.8 mg/dL (0.70-1.30); Calcium 9.5 mg/dL (8.5-10.1); Calculated LDL 185 mg/dL (<100); Chloride 99 mmol/L (98-107); Cholesterol 257 mg/dL (<200); Estimated GFR 105.82 (mL/min/1.73m2); Glucose 114 mg/dL (74-106); HDL Cholesterol 53 mg/dL (>or=40); Potassium 4.2 mmol/L (3.5-5.1); Sodium 135 mmol/L (136-145); Total Protein 8.4 g/dL (6.4-8.2); Triglyceride 98 mg/dL (<150)
[2024-12-05 10:13] LABS: Hemoglobin A1C 5.2 % (<5.7)
[2024-12-12 11:15] LABS: Testosterone, Total 356 ng/dL (240-950)
== END 2024-12-05 01:09 | disposition home or self-care (01) ==
PROVIDERS: PCP Physician Assistant; Visit Provider Nurse Practitioner Family
DX: Z00.00 Encounter for general adult medical examination without abnormal findings (principal); I10 Essential (primary) hypertension; E78.5 Hyperlipidemia, unspecified; Z68.36 Body mass index [BMI] 36.0-36.9, adult
CPT/HCPCS: 36415; 80053; 80061; 82533; 84403; 83036

== ENCOUNTER 2024-12-16 15:45 | Outpatient (REF) | payer OTHER, SELFPAY ==
[2024-12-16 15:42] LABS: C & S Indicated? No; RBC 0-2 HPF (0-2); WBC 0-2 HPF (0-5)
== END 2024-12-16 15:46 | disposition home or self-care (01) ==
LOC: NCHCN 15:45
PROVIDERS: PCP Physician Assistant; Visit Provider Nurse Practitioner Family
DX: R35.1 Nocturia (principal)
CPT/HCPCS: 81015

== ENCOUNTER 2025-01-28 16:51 | Outpatient (REF) | payer OTHER, SELFPAY ==
[2025-01-28 20:00] LABS: ESR 22 mm/hr (0-20)
[2025-01-28 20:02] LABS: HCT 40.4 % (40.0-50.0); HGB 13.7 g/dL (13.5-17.5); MCH 29.7 pg (27.0-33.0); MCHC 33.9 % (32.0-36.0); MCV 87 fL (80-95); MPV 11.5 fL (8.0-11.0); Platelet Count 210 10^3/uL (130-400); RBC 4.62 10^6/uL (4.36-5.78); RDW 12.8 % (11.8-14.1); RDW-SD 40.7 fL; WBC 10.04 10^3/uL (4.4-10.8)
[2025-01-28 20:22] LABS: ALT 46 U/L (16-63); AST 32 U/L (15-37); Albumin 4.3 g/dL (3.4-5.0); Alkaline Phosphatase 88 U/L (46-116); Anion Gap 10.0 mmol/L (3-11); BUN 28 mg/dL (7-18); Bilirubin, Total 0.6 mg/dL (0.2-1.0); C-Reactive Protein 0.85 mg/dL (<or=0.5); CO2 26.0 mmol/L (21.0-32.0); Calcium 10.0 mg/dL (8.5-10.1); Chloride 103 mmol/L (98-107); Creatine Kinase 391 U/L (39-308); Estimated GFR 110.18 (mL/min/1.73m2); Glucose 105 mg/dL (74-106); Potassium 4.3 mmol/L (3.5-5.1); Sodium 139 mmol/L (136-145); Total Protein 7.8 g/dL (6.4-8.2)
[2025-01-30 11:15] LABS: Lyme Ab w Rflx to Lyme Confirm Negative (Negative)
[2025-02-01 00:43] LABS: B. miyamotoi PCR Negative (Negative); Babesia divergens/MO-1 Negative (Negative); Ehrlichia muris eauclairensis Negative (Negative)
== END 2025-01-28 16:52 | disposition home or self-care (01) ==
LOC: NCHCN 16:51
PROVIDERS: PCP Physician Assistant; Visit Provider Nurse Practitioner Family
DX: G93.31 Postviral fatigue syndrome (principal); R48.1 Agnosia; R53.83 Other fatigue
CPT/HCPCS: 80053; 82550; 85027; 85652; 87798; 86140; 86618

== ENCOUNTER 2025-05-26 13:18 | Outpatient (REF) | payer OTHER, SELFPAY ==
[2025-05-29 22:00] LABS: SARS-CoV-2 Nucleocapsid Tot Ab Positive (Negative)
== END 2025-05-26 13:19 | disposition home or self-care (01) ==
LOC: NCHCN 13:18
PROVIDERS: PCP Physician Assistant; Visit Provider Nurse Practitioner Family
DX: G93.31 Postviral fatigue syndrome (principal)
CPT/HCPCS: 86769